=== PATIENT | male | born 1985 | race Caucasian/White ===

== ENCOUNTER 2017-01-09 14:58 | Emergency (ER) | payer OTHER ==
[~2017-01-09] VITALS: Ht 185.4 cm; Wt 75.0 kg
[~2017-01-09 14:58] MED LIST: ABIL15TA2 PO; BENZ1TAB PO; LEXA5SOL PO; RISP3 PO; TRIL300T PO
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
[2017-01-09] MEDS ORDERED: MORPHINE SULFATE 4 MG/ML INJ IV PUSH ONE ×2 (15:30→17:30)
[2017-01-09] MEDS ORDERED: LIDOCAINE HCL 1% 50 ML VIAL INFIL ONE (15:30)
[2017-01-09] MEDS ORDERED: TETANUS/DIPHTHERIA TOXOID ADULT 0.5 ML VIAL IM ONE (15:30)
[2017-01-09 15:43] VITALS: BP 123/79; PULSE 98; RESP 16; TEMP 98.1; O2SAT 97
[2017-01-09] MEDS ORDERED: ESCI5TAB PO (15:47)
[2017-01-09] MEDS ORDERED: OXCA300T PO (15:47)
[2017-01-09] MEDS ORDERED: RISP3 PO (15:47)
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
[2017-01-09 16:20] LABS: AUTOMATED NEUTROPHIL # 2.9 TH/MM3 (1.8-7.7); BASOPHIL % 0.7 % (0.0-2.0); EOSINOPHIL # 0.2 TH/MM3 (0-0.4); EOSINOPHIL % 4.8 % (0.0-4.0); HEMATOCRIT 41.1 % (39.0-51.0); HEMO FLAGS DIFF FINAL; LYMPH % 29.3 % (9.0-44.0); LYMPHOCYTE # 1.4 TH/MM3 (1.0-4.8); MEAN CELL VOLUME 92.2 FL (80.0-100.0); MEAN CORPUSCULAR HEMOGLOBIN 32.6 PG (27.0-34.0); MEAN CORPUSCULAR HGB CONC 35.4 % (32.0-36.0); NEUT % 59.2 % (16.0-70.0); PLATELET COUNT 131 TH/MM3 (150-450); RED BLOOD COUNT 4.46 MIL/MM3 (4.50-5.90); RED CELL DISTRIBUTION WIDTH 12.7 % (11.6-17.2); WHITE BLOOD COUNT 4.9 TH/MM3 (4.0-11.0)
[2017-01-09 16:34] LABS: ALT (GPT) 15 U/L (12-78); ANION GAP 7 MEQ/L (5-15); AST (GOT) 14 U/L (15-37); BICARBONATE 29.8 MEQ/L (21.0-32.0); BLOOD UREA NITROGEN 4 MG/DL (7-18); CHLORIDE 100 MEQ/L (98-107); GLOMERULAR FILTRATION RATE 96 ML/MIN (>89); POTASSIUM 3.4 MEQ/L (3.5-5.1); SODIUM (NA) 137 MEQ/L (136-145)
[2017-01-09 16:36] LABS: ALKALINE PHOSPHATASE 48 U/L (45-117); TOTAL BILIRUBIN ADULT 0.5 MG/DL (0.2-1.0)
[2017-01-09] MEDS ORDERED: ceFAZolin 2 GM PREMIX 50 ML IV ONE (16:45)
[2017-01-09 16:56] LABS: ALCOHOL 177 MG/DL (0-5)
[2017-01-09 17:48] LABS: BLOOD, URINE NEG (NEG); COMMENT (UR) CULT NOT INDICATED; CULTURE IF INDICATED CULT NOT INDICATED; GLUCOSE,URINE NEG (NEG); KETONE, URINE NEG (NEG); NITRITE,URINE NEG (NEG); SQUAMOUS EPITHELIAL CELL URINE <1 /hpf (0-5); URINE COLOR LIGHT-YELLOW (YELLW/STRAW)
[2017-01-09 18:48] VITALS: BP 127/69; PULSE 89; RESP 19; O2SAT 99
== END 2017-01-09 19:04 | disposition short-term general hospital (02) ==
LOC: NEPD 14:58
DX: S66.821A Laceration of other specified muscles, fascia and tendons at wrist and hand level, right hand, initial encounter (principal); X99.1XXA Assault by knife, initial encounter; F41.9 Anxiety disorder, unspecified; F20.9 Schizophrenia, unspecified
CPT/HCPCS: 12002; 29125; 73110; 80053; 80307; 81001; 85025; 90471; 90714; 96365; 96375; 96376; 99285; J0690; J2270